=== PATIENT | male | born 1935 ===

== ENCOUNTER 2021-02-15 16:23 | Emergency (ER) | payer MEDICARE, OTHER ==
[2021-02-15] MEDS ORDERED: Cephalexin 500 MG Cap ONE (18:00)
--- NOTE | 2021-02-15 18:55 | EDM.PDOC ---
ED HPI GENERAL MEDICAL PROBLEM - General Chief Complaint: Upper Extremity Injury/Pain Stated Complaint: LACERATION RIGHT HAND Time Seen by Provider: 02/15/21 16:40 Source of Information: Reports: Patient History Limitations: Reports: No Limitations - History of Present Illness INITIAL COMMENTS - FREE TEXT/NARRATIVE: 85-year-old male presented to the ED with multiple lacerations to his distal fingertips. Patient has no other complaints. Patient denies chest pain, shortness of breath, syncope, dizzy lightheaded, nausea vomiting. Patient says he has lacerations on his index finger, middle finger, ring finger. Bleeding is controlled, patient is not experiencing any pain. Treatments [employer]: Reports: Other (see below) (Direct pressure) - Related Data Allergies Allergy/AdvReac Type Severity Reaction Status Date / Time No Known Allergies Allergy Verified 02/15/21 17:43 Home Meds: Home Meds Aspirin 1 tab PO DAILY 12/28/13 [History] Simvastatin [Zocor] 40 mg PO DAILY 12/28/13 [History] Review of Systems - Review of Systems Review Of Systems: See Below Constitutional: Reports: No Symptoms Eyes: Reports: No Symptoms Ears: Reports: No Symptoms Nose: Reports: No Symptoms Mouth/Throat: Reports: No Symptoms Respiratory: Reports: No Symptoms Cardiovascular: Reports: No Symptoms GI/Abdominal: Reports: No Symptoms Genitourinary: Reports: No Symptoms Musculoskeletal: Reports: No Symptoms Skin: Reports: Other (Lacerations) Neurological: Reports: No Symptoms Psychiatric: Reports: No Symptoms ED EXAM, GENERAL - Physical Exam Exam: See Below Free Text/Narrative:: Focused exam limited to right hand. Digit #2 has a 0.5 cm laceration full- thickness linear, no tendon involvement, bleeding is controlled on the distal to the DIP palmar surface. Digit #3 has a 1 cm full-thickness laceration linear just shy of the periosteum, no tendon involvement, bleeding is controlled on the medial palmar surface distal to the DIP. Digit #4 has a 1-1/2 to 2 cm linear laceration full-thickness again just shy to the periosteum, bleeding is controlled, linear distal to the DIP medial palmar surface, no tendon involvement. No other injuries noted to the hand. ED TRAUMA EXTREMITY PROCEDURES - Laceration/Wound Repair Right Digit - 2nd (Index) Lac/Wound Length In cm: 0.5 Appearance: Superficial, Subcutaneous, Muscle, Linear, Clean Distal NVT: Neuro & Vascular Intact, No Tendon Injury Anesthetic Type: Digital Local Anesthesia - Lidocaine (Xylocaine): 1% Plain Local Anesthetic Volume: 3cc Skin Prep: Providone-Iodine (Betadine) Saline Irrigation (cc's): 10 Exploration/Debridement/Repair: Wound Explored, Explored to Base, No Foreign Material Found Closed With: Sutures Suture Size: 4-0 # of Sutures: 3 (Ethilon) Suture Type: Interrupted, Simple Right Digit - 3rd (Middle) Lac/Wound Length In cm: 1 Appearance: Superficial, Subcutaneous, Muscle, Linear Distal NVT: Neuro & Vascular Intact, No Tendon Injury Anesthetic Type: Digital Local Anesthesia - Lidocaine (Xylocaine): 1% Plain Local Anesthetic Volume: 3cc Skin Prep: Providone-Iodine (Betadine) Exploration/Debridement/Repair: Wound Explored, Explored to Base, No Foreign Material Found Closed With: Sutures Suture Size: 4-0 # of Sutures: 7 (Ethilon) Suture Type: Interrupted, Simple Right Digit - 4th (Ring) Lac/Wound Length In cm: 2 Appearance: Superficial, Subcutaneous, Muscle, Linear Distal NVT: Neuro & Vascular Intact, No Tendon Injury Anesthetic Type: Digital Local Anesthesia - Lidocaine (Xylocaine): 1% Plain Local Anesthetic Volume: 3cc Skin Prep: Providone-Iodine (Betadine) Saline Irrigation (cc's): 10 Exploration/Debridement/Repair: Wound Explored, Explored to Base, No Foreign Material Found Closed With: Sutures Suture Size: 4-0 # of Sutures: 10 (Ethilon) Suture Type: Interrupted, Simple Departure - Departure Time of Disposition: 18:30 Disposition: Home, Self-Care 01 Condition: Good Clinical Impression: Laceration of finger of right hand Qualifiers: Encounter type: initial encounter Finger: unspecified finger Damage to nail status: unspecified Foreign body presence: without foreign body Qualified Code(s): S61.219A - Laceration without foreign body of unspecified finger without damage to nail, initial encounter - Discharge Information *PRESCRIPTION DRUG MONITORING PROGRAM REVIEWED*: No *COPY OF PRESCRIPTION DRUG MONITORING REPORT IN PATIENT ANGIE: No Instructions: Laceration Care, Adult Referrals: PCP,None [Primary Care Provider] - Forms: ED Department Discharge Additional Instructions: Take Keflex 500mg twice a day for 6 days. Return to ED or clinic if s/s of infection, increased swelling, drainage or redness. Call clinic tomorrow and make appt to have sutures removed in 10 days. - Assessment/Plan Assessment:: Lacerations to digits 2, 3, 4. Control bleeding, achieved anesthesia digits 2, 3, 4, irrigate, clean, suture, dressed and bandage topical bacitracin, discharged home with laceration/suture instructions, Keflex 500 mg twice daily for 6 days. Plan: See above
== END 2021-02-15 18:21 | disposition home or self-care (01) ==
LOC: LB.ED 16:23
DX: S61.210A Laceration without foreign body of right index finger without damage to nail, initial encounter (principal); S61.212A Laceration without foreign body of right middle finger without damage to nail, initial encounter; S61.214A Laceration without foreign body of right ring finger without damage to nail, initial encounter; W27.0XXA Contact with workbench tool, initial encounter
CPT/HCPCS: 12002; 99282; A9270